=== PATIENT | female | born 1970 | race Caucasian/White ===

== ENCOUNTER 2018-09-04 11:23 | Emergency (ER) | payer OTHER, MEDICAID ==
[~2018-09-04] VITALS: Ht 182.9 cm; Wt 103.6 kg
[~2018-09-04 11:23] MED LIST: ASPIR 8181 M1 PO; ATIVAN0.5 M1 PO; ATORVASTATIN CA40 MG PO; COZAAR 50 MG TA50 M2 PO; MAGOX 400400 MG PO; NORCO 10-325 T1 EACH PO; NORCO 5-325 TA1 EACH PO; PROTONIX40 M1 PO; ZENPEP DR 5,001 EACH PO
[2018-09-04] MEDS ORDERED: LOPERAMIDE 2 MG2 M1 PO (11:38)
[2018-09-04] MEDS ORDERED: SUMATRIPTAN-NA1 EACH PO (11:38)
[2018-09-04 12:19] LABS: ABSOLUTE BASOPHILS 0.1 thou/uL (0.0-0.2); ABSOLUTE EOSINOPHILS 0.1 thou/uL (0.0-0.7); ABSOLUTE LYMPHOCYTES 1.5 thou/uL (0.8-5.3); ABSOLUTE MONOCYTES 0.5 thou/uL (0.0-1.2); ABSOLUTE NEUTROPHILS 6.1 thou/uL (1.6-8.1); BASOPHILS 0.7 %; EOSINOPHILS 1.4 %; HEMOGLOBIN 13.6 gm/dL (12.0-15.0); LYMPHOCYTES 18.3 %; MCH 27.6 pg (26.0-34.0); MCHC 33.3 g/dL (28.0-37.0); MONOCYTES 5.8 %; MPV 9.4 fl. (7.2-11.1); NUCLEATED RBCS 0 /100WBC; PLATELET COUNT* 255 thou/uL (150-400); POLYS 73.8 %; RBC 4.94 mil/uL (4.20-5.00); WBC 8.3 thou/uL (4.0-11.0)
[2018-09-04 12:29] LABS: ANION GAP 10 mmol/L (7-16); BUN 15 mg/dL (7-18); CALCIUM 8.7 mg/dL (8.5-10.1); CHLORIDE 105 mmol/L (98-107); CO2 25 mmol/L (21-32); CREATININE 0.7 mg/dL (0.6-1.3); GLUCOSE 118 mg/dL (70-99); POTASSIUM 3.5 mmol/L (3.5-5.1); SODIUM 140 mmol/L (136-145)
[2018-09-04 12:31] LABS: URINE BILIRUBIN NEGATIVE (Negative); URINE BLOOD NEGATIVE (Negative); URINE CLARITY CLEAR; URINE COLOR YELLOW; URINE GLUCOSE-RANDOM NEGATIVE (Negative); URINE KETONES NEGATIVE (Negative); URINE LEUKOCYTES-REFLEX NEGATIVE (Negative); URINE NITRITE-REFLEX NEGATIVE (Negative); URINE PROTEIN TRACE (Negative); URINE SPECIFIC GRAVITY 1.015 (1.005-1.030); URINE UROBILINOGEN 0.2 E.U./dl (0.2-1.0)
[2018-09-04 12:45] LABS: ALBUMIN 3.9 g/dL (3.4-5.0); ALKALINE PHOSPHATASE 66 U/L (46-116); LIPASE 65 U/L (73-393); NT-PRO BRAIN NAT PEPTIDE 568 pg/mL (<300); SGOT 14 U/L (15-37); SGPT 27 U/L (30-65); TOTAL BILIRUBIN 0.6 mg/dL (<0.1-1.0); TROPONIN-I LEVEL <0.06 ng/mL (<0.06)
[2018-09-04] MEDS ORDERED: NORCO 5-325 TA1 EAC1 PO (13:49)
[2018-09-04 15:50] VITALS: BP 199/98
--- NOTE | 2018-09-04 17:06 | EKG ---
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 : 1970 Requested By: Diana Galindo Order Number: [id number] MD: Ross Richards Measurements Intervals [place] Rate: 61 P: 14 DE: 148 QRS: 13 QRSD: 104 T: 47 QT: 505 QTc: 509 Interpretive Statements Sinus rhythm Left ventricular hypertrophy Borderline Prolonged QT interval Compared to ECG 12/21/2014 19:18:31 Left ventricular hypertrophy now present Borderline Prolonged QT interval now present Electronically Signed On 09-04-2018 17:06:29 CDT by Ross Richards [email or web address] <ELECTRONICALLY SIGNED> By: Ross Richards MD, [facility] 09/04/18 1706 1201 120 Ross Richards MD, [facility] /EPI
== END 2018-09-04 15:51 | disposition home or self-care (01) ==
LOC: M.ERS 11:23
PROVIDERS: Physician Assistant
DX: R11.2 Nausea with vomiting, unspecified (principal); K86.2 Cyst of pancreas; Z88.6 Allergy status to analgesic agent; Z88.8 Allergy status to other drugs, medicaments and biological substances

== ENCOUNTER 2018-09-08 12:50 | Emergency (ER) | payer OTHER, MEDICAID ==
[~2018-09-08] VITALS: Ht 182.9 cm; Wt 104.3 kg
[~2018-09-08 12:50] MED LIST changes: +LOPERAMIDE 2 MG2 M1 PO; +NORCO 5-325 TA1 EAC1 PO; +SUMATRIPTAN-NA1 EACH PO
[2018-09-08] MEDS ORDERED: NORCO 5-325 TA1 EAC1 PO (14:07)
[2018-09-08 14:21] VITALS: BP 201/166
--- NOTE | 2018-09-08 18:02 | EKG ---
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
== END 2018-09-08 14:22 | disposition home or self-care (01) ==
LOC: M.ERS 12:50
DX: M25.511 Pain in right shoulder (principal); I10 Essential (primary) hypertension; Z90.49 Acquired absence of other specified parts of digestive tract; Z88.8 Allergy status to other drugs, medicaments and biological substances

== ENCOUNTER 2018-09-22 08:48 | Emergency (ER) | payer OTHER, MEDICAID ==
[~2018-09-22] VITALS: Ht 182.9 cm; Wt 97.5 kg
[2018-09-22 09:42] LABS: ABSOLUTE BASOPHILS 0.1 thou/uL (0.0-0.2); ABSOLUTE EOSINOPHILS 0.1 thou/uL (0.0-0.7); ABSOLUTE LYMPHOCYTES 1.3 thou/uL (0.8-5.3); ABSOLUTE MONOCYTES 0.7 thou/uL (0.0-1.2); BASOPHILS 0.5 %; HEMATOCRIT 41.3 % (37.0-47.0); HEMOGLOBIN 13.9 gm/dL (12.0-15.0); LYMPHOCYTES 14.7 %; MCH 27.9 pg (26.0-34.0); MCHC 33.6 g/dL (28.0-37.0); MCV 83.1 fL (80.0-100.0); MONOCYTES 7.7 %; MPV 8.6 fl. (7.2-11.1); NUCLEATED RBCS 0 /100WBC; PLATELET COUNT* 334 thou/uL (150-400); POLYS 76.1 %; RBC 4.97 mil/uL (4.20-5.00); RDW-CV 14.3 % (10.5-14.5); WBC 9.2 thou/uL (4.0-11.0)
[2018-09-22 09:55] LABS: ANION GAP 10 mmol/L (7-16); BUN 32 mg/dL (7-18); CALCIUM 9.1 mg/dL (8.5-10.1); CHLORIDE 102 mmol/L (98-107); CO2 26 mmol/L (21-32); CREATININE 0.8 mg/dL (0.6-1.3); GLUCOSE 104 mg/dL (70-99); POTASSIUM 3.6 mmol/L (3.5-5.1); SODIUM 138 mmol/L (136-145)
[2018-09-22 09:59] LABS: ALBUMIN 4.1 g/dL (3.4-5.0); ALKALINE PHOSPHATASE 68 U/L (46-116); SGOT 14 U/L (15-37); SGPT 25 U/L (30-65); TOTAL BILIRUBIN 1.7 mg/dL (<0.1-1.0); TOTAL PROTEIN 7.4 g/dL (6.4-8.2); TROPONIN-I LEVEL <0.06 ng/mL (<0.06)
[2018-09-22 11:49] VITALS: BP 158/96
--- NOTE | 2018-09-22 17:05 | EKG ---
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1970 Requested By: Leanna Hart Order Number: [id number] MD: Ross Richards Measurements Intervals [place] Rate: 63 P: 23 [place]: 146 QRS: 19 QRSD: 107 T: 25 QT: 445 QTc: 456 Interpretive Statements Sinus rhythm Probable left ventricular hypertrophy Baseline wander in lead(s) I,II,aVR,aVF Compared to ECG 09/08/2018 13:49:34 No significant changes Electronically Signed On 09-22-2018 17:05:20 CDT by Ross Richards [email or web address] <ELECTRONICALLY SIGNED> By: Ross Richards MD, [facility] 09/22/18 1705 0855 0855 Ross Richards MD, [facility] /EPI
== END 2018-09-22 11:50 | disposition home or self-care (01) ==
LOC: M.ERS 08:48
PROVIDERS: Personal Emergency Response Attendant
DX: R10.9 Unspecified abdominal pain (principal); Z90.89 Acquired absence of other organs; Z88.8 Allergy status to other drugs, medicaments and biological substances